=== PATIENT | female | born 1960 | race Caucasian/White ===

== ENCOUNTER 2016-08-04 16:58 | Emergency (ER) | payer OTHER ==
[~2016-08-04] VITALS: Ht 177.8 cm; Wt 63.6 kg
[2016-08-04 17:00] VITALS: BP 119/78; PULSE 92; RESP 20; O2SAT 100
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
[2016-08-04] MEDS ORDERED: Bacitracin Ointment Packet TOPICAL ONE (18:20)
[2016-08-04] MEDS ORDERED: _HYDROcodone/APAP 5-325 mg Tablet PO PRN (18:20)
[2016-08-04] MEDS ORDERED: Amoxicillin-Clav 875-125 mg Tablet PO ONE (18:20)
[2016-08-04 19:15] VITALS: BP 119/78; PULSE 92; RESP 20; O2SAT 100
== END 2016-08-04 19:15 | disposition home or self-care (01) ==
LOC: SED 16:58
DX: T23.232A Burn of second degree of multiple left fingers (nail), not including thumb, initial encounter (principal); T23.231A Burn of second degree of multiple right fingers (nail), not including thumb, initial encounter; S60.522A Blister (nonthermal) of left hand, initial encounter; T31.0 Burns involving less than 10% of body surface; X58.XXXA Exposure to other specified factors, initial encounter; Y92.814 Boat as the place of occurrence of the external cause; Y93.89 Activity, other specified; Y99.8 Other external cause status; Z88.8 Allergy status to other drugs, medicaments and biological substances; W24.0XXA Contact with lifting devices, not elsewhere classified, initial encounter